=== PATIENT | female | born 1965 | race Caucasian/White ===

== ENCOUNTER 2023-04-21 08:59 | Inpatient (IN) | payer BC ==
[2023-04-18 16:56] LABS: BASOPHILS % (AUTO) 0.3 % (0-1); EOSINOPHILS # (AUTO) 0.1 X10'3 (0-0.9); EOSINOPHILS % (AUTO) 1.3 % (0-6); LYMPHOCYTES # (AUTO) 2.4 X10'3 (1.1-4.8); LYMPHOCYTES % (AUTO) 26.9 % (21-51); MEAN CORPUSCULAR HEMOGLOBIN 31.3 PG (27.0-31.0); MEAN CORPUSCULAR HGB CONC 33.9 g/dL (33.0-36.5); MEAN CORPUSCULAR VOLUME 92.5 FL (78-98); MEAN PLATELET VOLUME 9.1 FL (7.4-10.4); MONOCYTES # (AUTO) 0.6 X10'3 (0-0.9); MONOCYTES % (AUTO) 7.1 % (2-12); NEUTROPHILS # (AUTO) 5.7 X10'3 (1.8-7.7); NEUTROPHILS % (AUTO) 64.4 % (42-75); PRE OP HEMATOCRIT 44.5 % (35.0-45.0); PRE OP HEMOGLOBIN 15.1 g/dL (12.0-16.0); PRE OP PLATELET COUNT 294 X10'3 (140-440); PRE OP WHITE BLOOD COUNT 8.8 10'3 (4.8-10.8); RED BLOOD COUNT 4.81 X10'6 (4.20-5.60); RED CELL DISTRIBUTION WIDTH 13.4 % (11.5-14.5)
[2023-04-18 17:11] LABS: ALBUMIN 3.5 G/DL (3.4-5.0); ALBUMIN/GLOBULIN RATIO 0.9 (1.1-1.5); ALKALINE PHOSPHATASE 93 IU/L (46-116); BLOOD UREA NITROGEN 17 MG/DL (7-18); BUN/CREATININE RATIO 18.1 (10.0-20.0); CALCIUM 9.7 MG/DL (8.5-10.1); CHLORIDE 104 MMOL/L (99-107); CREATININE 0.94 MG/DL (0.40-0.90); PRE OP ALT 50 U/L (30-65); PRE OP ANION GAP 7 (8-16); PRE OP AST 26 U/L (10-37); PRE OP BILIRUB, TOTAL 0.6 MG/DL (0.0-1.0); PRE OP GLUCOSE 95 MG/DL (70-104); PRE OP SODIUM 138 MMOL/L (135-145); TOTAL CARBON DIOXIDE 27.3 MMOL/L (24-32); TOTAL PROTEIN 7.4 G/DL (6.4-8.2); eGFR 62 ML/MIN
[2023-04-21] VITALS (24 sets, daily range): BP systolic 65–127; BP diastolic 47–81; PULSE 55–68; RESP 12–18; TEMP 96.5–98.7; O2SAT 94–100
[~2023-04-21] VITALS: Ht 160 cm; Wt 138.3 kg
[2023-04-21] MEDS: ringers solution, lacted 1,000 ML IV SCH ×2 (05:00→19:24)
[~2023-04-21 08:59] MED LIST: DOCUMENT DATE & TIME OF BETA-BLOCKER PO ONE; METO-411 PO; SPIR50TA5 PO; ceFAZolin inj. 3,000 MG in normal saline 100ml IV soln 100 ML IV ONE; famotidine 20mg tablet PO ONE; vancomycin 1,500 MG in NS 300ml IV soln IV ONE
[2023-04-21] MEDS ORDERED: vancomycin 1,750 MG in NS 350ml IV soln IV ONE (09:45)
[2023-04-21] MEDS ORDERED: naloxone 0.4 mg/ml inj IV PRN (09:50)
[2023-04-21] MEDS ORDERED: diphenhydrAMINE 25mg capsule PO PRN ×2 (09:50)
[2023-04-21] MEDS ORDERED: acetaminophen 325mg tablet PO PRN (09:50)
[2023-04-21] MEDS ORDERED: HYDROmorphone 1 mg/ml syringe IV PRN (09:50)
[2023-04-21] MEDS ORDERED: magnesium hydroxide 30ml (MOM) UD suspension PO PRN (09:50)
[2023-04-21] MEDS ORDERED: HYDROmorphone inj. 0.5 MG/0.5 ML DISP.SYRIN IV PRN (09:50)
[2023-04-21] MEDS ORDERED: bisacodyl 10mg suppository rectal RC PRN (09:50)
[2023-04-21] MEDS ORDERED: ondansetron/PF 4mg/2ml inj IV PRN ×2 (09:50→10:50)
[2023-04-21] MEDS ORDERED: tranexamic acid inj. 1,000 MG in normal saline 100ml IV soln 90 ML IV ONE (10:00)
[2023-04-21] MEDS ORDERED: epiNEPHrine 1 mg/ml inj ONE (10:27)
[2023-04-21] MEDS ORDERED: ketorolac trometh. 30mg/ml inj. ONE (10:27)
[2023-04-21] MEDS ORDERED: cloNIDine hcl/PF 100mcg/ml inj ONE (10:28)
[2023-04-21] MEDS ORDERED: vancomycin 1,000mg inj ONE (10:28)
[2023-04-21] MEDS ORDERED: ROPIVAcaine 0.5% (5mg/ml) 30ml vial ONE ×2 (10:28→13:16)
[2023-04-21] MEDS ORDERED: morphine 4 MG/ML inj SYRINge IV PRN (10:50)
[2023-04-21] MEDS ORDERED: proCHLORperazine 10 MG/2 ml inj IV PRN (10:50)
[2023-04-21] MEDS ORDERED: morphine 2 MG/ML inj. syringe IV PRN (10:50)
[2023-04-21] MEDS ORDERED: ROPIVAcaine 0.2% (10 MG/5 ML) BOLUS INJECTION ADDCANAL PRN (10:50)
[2023-04-21] MEDS ORDERED: ringers solution, lacted 1,000 ML IV SCH (10:50)
[2023-04-21] MEDS ORDERED: meperidine/PF 25mg/ml syringe IV PRN ×2 (10:50)
[2023-04-21] MEDS ORDERED: MIDAZolam 1 MG/ML 5ML VIAL ONE (12:00)
[2023-04-21] MEDS ORDERED: fentaNYL/PF 50MCG/1 ML 2ML syringe ONE (12:00)
[2023-04-21] MEDS ORDERED: BUPIVAcaine/dex-water/PF 7.5 mg/ml 2ml ampul ONE (12:01)
[2023-04-21] MEDS ORDERED: ROPIVAcaine 0.5% (5mg/ml) 30ml vial IJ ONE (12:34)
[2023-04-21] MEDS ORDERED: cloNIDine hcl/PF 100mcg/ml inj IJ ONE (12:35)
[2023-04-21] MEDS ORDERED: propofol inj 20 ML IV ONE (13:16)
--- NOTE | 2023-04-21 14:07 | NUR ---
Received from OR via BED, accompanied by Anesthesiologist and report given by MARTINEZ Anesthesiologist. PATIENT AWAKE & ALERT, DENIES PAIN, V/S WNL, SCD ON, 20G TO RIGHT HAND, EVAN drsg to RIGHT KNEE C/D/I with ON Q BALL AT 2ML/HR. Addendum: 04/21/23 at 1432 by Robin Wang RN Amended: Links added.
[2023-04-21] MEDS: ROPIVAcaine 0.2%/PF PUMP/bolus 545 ML ADDCANAL SCH (14:33)
[2023-04-21] MEDS: meperidine/PF 25mg/ml syringe IV PRN ×2 (15:19→15:33)
--- NOTE | 2023-04-21 15:47 | NUR ---
PATIENT HAS MET ALL CRITERIA FOR TRANSFER TO ORTHO FLOOR. VSS. DRESSINGS INTACT. BED LOW, CALL LIGHT PRESENT AND 2 RAILS UP. RN PRESENT TO ACCEPT CARE OF PATIENT AND REPORT HAS BEEN CALLED. ALL QUESTIONS ANSWERED TO ACCEPTING RN. Addendum: 04/21/23 at 1556 by Robin Wang RN Amended: Links added.
[2023-04-21] MEDS ORDERED: NORMAL SALINE IV SCH (16:00)
[2023-04-21] MEDS ORDERED: ceFAZolin/D5W- 1GM premix 50 ML IV SCH (16:00)
[2023-04-21] MEDS ORDERED: CEFAZOLIN IV SCH (16:00)
[2023-04-21] MEDS: HYDROcodone/acetaminophen 10/325mg tab PO PRN ×3 (16:35→23:20)
[2023-04-21] MEDS ORDERED: tranexamic acid inj. 1,400 MG in normal saline 100ml IV soln 86 ML IV ONE (17:00)
--- NOTE | 2023-04-21 17:23 | NUR ---
Order discrepancy in the flow rate of Ancef. Called the pharmacist. She states to ignore the order to run "over 30 minutes." Notified primary nurse.
[2023-04-21] MEDS: potassium cl 20mEq in 1/2 NS 1,000 ML IV SCH ×2 (17:50→19:24)
--- NOTE | 2023-04-21 18:24 | NUR ---
Patient in room ORTHO 4024. I have received report from SHAHLA Ferreira and had the opportunity to ask questions and assume patient care.
[2023-04-21] MEDS: CEFAZOLIN IV SCH (19:31)
[2023-04-21] MEDS: NORMAL SALINE IV SCH (19:31)
[2023-04-21] MEDS ORDERED: vancomycin/NS 1 GM ADD-VANTAGE 250 ML IV ONE (20:00)
[2023-04-21] MEDS ORDERED: vancomycin/NS 1 GM ADD-VANTAGE 250 ML IV SCH (20:00)
[2023-04-21] MEDS: spironolactone 50 MG tablet PO SCH (20:00)
[2023-04-21] MEDS: metoprolol succinate 25mg (24-HOUR) SR. Tablet PO SCH (20:00)
[2023-04-21] MEDS ORDERED: VANCOmycin 2,000MG in NS 500ml IV soln IV ONE (20:00)
[2023-04-21] MEDS: ascorbic acid 500mg tablet PO SCH (20:43)
[2023-04-21] MEDS: gabapentin 300mg capsule PO SCH (20:43)
[2023-04-21] MEDS: sennosides 8.6mg tablet PO SCH (20:44)
[2023-04-22] VITALS (8 sets, daily range): BP systolic 94–141; BP diastolic 48–78; PULSE 64–86; RESP 13–20; TEMP 97.6–98.7; O2SAT 95–100
[2023-04-22] MEDS: potassium cl 20mEq in 1/2 NS 1,000 ML IV SCH ×4 (01:42→19:11)
[2023-04-22] MEDS: NORMAL SALINE IV SCH ×2 (03:35→11:23)
[2023-04-22] MEDS: CEFAZOLIN IV SCH ×2 (03:35→11:23)
[2023-04-22] MEDS: HYDROcodone/acetaminophen 10/325mg tab PO PRN ×4 (05:14→20:44)
[2023-04-22 06:11] LABS: BASOPHILS % (AUTO) 0.4 % (0-1); EOSINOPHILS # (AUTO) 0.1 X10'3 (0-0.9); EOSINOPHILS % (AUTO) 1.8 % (0-6); HEMATOCRIT 37.2 % (35.0-45.0); HEMOGLOBIN 12.6 g/dl (12.0-16.0); LYMPHOCYTES # (AUTO) 1.8 X10'3 (1.1-4.8); LYMPHOCYTES % (AUTO) 21.8 % (21-51); MEAN CORPUSCULAR HEMOGLOBIN 31.3 PG (27.0-31.0); MEAN CORPUSCULAR HGB CONC 33.7 g/dL (33.0-36.5); MEAN CORPUSCULAR VOLUME 92.8 FL (78-98); MEAN PLATELET VOLUME 9.3 FL (7.4-10.4); MONOCYTES # (AUTO) 0.8 X10'3 (0-0.9); MONOCYTES % (AUTO) 9.4 % (2-12); NEUTROPHILS # (AUTO) 5.6 X10'3 (1.8-7.7); NEUTROPHILS % (AUTO) 66.6 % (42-75); PLATELET COUNT 239 X10'3 (140-440); RED BLOOD COUNT 4.01 X10'6 (4.20-5.60); RED CELL DISTRIBUTION WIDTH 13.2 % (11.5-14.5); WHITE BLOOD COUNT 8.4 X10'3 (4.5-11.0)
--- NOTE | 2023-04-22 06:13 | NUR ---
Problems reprioritized. Patient report given, questions answered & plan of care reviewed with SHAHLA San.
[2023-04-22 06:31] LABS: ANION GAP 9 (8-16); CHLORIDE 103 MMOL/L (99-107); POTASSIUM 4.1 MMOL/L (3.5-5.1); SODIUM 135 MMOL/L (135-145)
--- NOTE | 2023-04-22 06:35 | NUR ---
Patient in room ORTHO 4024. I have received report from Denise GALE and had the opportunity to ask questions and assume patient care.
--- NOTE | 2023-04-22 07:30 | NUR ---
spoke cwith dr ashlie cline in regards to Physical therapys concern that pt couldn't safelyu discharge as she has 9/10 pain while ambulating and was only able to ambulate 15 ft. He is aware and will continue to monitor her progress
[2023-04-22] MEDS: metoprolol succinate 25mg (24-HOUR) SR. Tablet PO SCH ×2 (08:00→19:12)
[2023-04-22] MEDS: spironolactone 50 MG tablet PO SCH ×2 (08:00→19:12)
[2023-04-22] MEDS: ascorbic acid 500mg tablet PO SCH ×2 (09:50→19:11)
[2023-04-22] MEDS: gabapentin 300mg capsule PO SCH ×3 (09:50→20:43)
[2023-04-22] MEDS: aspirin 325mg tablet PO SCH (09:50)
[2023-04-22] MEDS: multivitamins, therapeutics tablet PO SCH (09:50)
--- NOTE | 2023-04-22 13:20 | NUR ---
Joint surgery consult: Pt s/p knee surgery per EMR. Pt seen at bedside for verbal/written high protein nutrition education. RD contact also provided and encouraged pt to reach out for nutrition questions or concerns. Addendum: 04/22/23 at [address] Amended: Links added.
--- NOTE | 2023-04-22 18:16 | NUR ---
Problems reprioritized. Patient report given, questions answered & plan of care reviewed with Gissel GALE.
[2023-04-22] MEDS: celeCOXIB 100mg capsule PO SCH (19:11)
[2023-04-22] MEDS: sennosides 8.6mg tablet PO SCH (20:43)
[2023-04-23] MEDS: HYDROcodone/acetaminophen 10/325mg tab PO PRN ×3 (02:45→12:16)
--- NOTE | 2023-04-23 05:59 | NUR ---
Problems reprioritized. Patient report given, questions answered & plan of care reviewed with DEISY GALE.
[2023-04-23 06:34] LABS: BASOPHILS % (AUTO) 0.3 % (0-1); EOSINOPHILS # (AUTO) 0.3 X10'3 (0-0.9); EOSINOPHILS % (AUTO) 2.8 % (0-6); HEMATOCRIT 37.7 % (35.0-45.0); HEMOGLOBIN 12.5 g/dl (12.0-16.0); LYMPHOCYTES # (AUTO) 1.6 X10'3 (1.1-4.8); MEAN CORPUSCULAR HEMOGLOBIN 30.9 PG (27.0-31.0); MEAN CORPUSCULAR HGB CONC 33.3 g/dL (33.0-36.5); MEAN CORPUSCULAR VOLUME 92.9 FL (78-98); MEAN PLATELET VOLUME 9.7 FL (7.4-10.4); MONOCYTES # (AUTO) 1.1 X10'3 (0-0.9); MONOCYTES % (AUTO) 10.9 % (2-12); NEUTROPHILS # (AUTO) 6.8 X10'3 (1.8-7.7); PLATELET COUNT 249 X10'3 (140-440); RED BLOOD COUNT 4.06 X10'6 (4.20-5.60); RED CELL DISTRIBUTION WIDTH 13.2 % (11.5-14.5); WHITE BLOOD COUNT 9.7 X10'3 (4.5-11.0)
[2023-04-23 08:00] VITALS: RESP 13; O2SAT 100
[2023-04-23] MEDS: celeCOXIB 100mg capsule PO SCH (09:07)
[2023-04-23] MEDS: gabapentin 300mg capsule PO SCH ×2 (09:08→13:12)
[2023-04-23] MEDS: aspirin 325mg tablet PO SCH (09:08)
[2023-04-23] MEDS: multivitamins, therapeutics tablet PO SCH (09:08)
[2023-04-23] MEDS: ascorbic acid 500mg tablet PO SCH (09:08)
[2023-04-23] MEDS: spironolactone 50 MG tablet PO SCH (09:10)
[2023-04-23] MEDS: ROPIVAcaine 0.2%/PF PUMP/bolus 545 ML ADDCANAL SCH (09:10)
[2023-04-23] MEDS: metoprolol succinate 25mg (24-HOUR) SR. Tablet PO SCH (09:11)
[2023-04-23 12:16] VITALS: RESP 18
== END 2023-04-23 15:20 | disposition home or self-care (01) | DRG 470 ==
LOC: PAS 08:59 → ORTHO 4S 09:52
PROVIDERS: ADMIT Orthopaedic Surgery; ATTEND Orthopaedic Surgery
PROC: 0SRC0J9 Replacement of Right Knee Joint with Synthetic Substitute, Cemented, Open Approach (ICD-10-PCS; principal; 2023-04-21 12:01)
DX: M17.11 Unilateral primary osteoarthritis, right knee (principal); M21.161 Varus deformity, not elsewhere classified, right knee
CPT/HCPCS: Z7506; Z7508; 36415; 73560; 80051; 80053; 82948; 85025; 86885; 86900; 86901; 87081; 97116; 97161; 97530; A4215; A7000; C1713; C1776; G0378; J0171; J0690; J0735; J1885; J2175; J2250; J2704; J2795; J3010; J3370; J3480; J3490; J7040; J7120